=== PATIENT | male | born 1975 | race American Indian/Alaskan Native ===

== ENCOUNTER 2018-04-12 07:14 | Emergency (ER) | payer OTHER ==
--- NOTE | 2018-04-12 08:43 | Emergency Department Report ---
ED Back Pain/Injury HPI - General Chief Complaint: Abdominal Pain Stated Complaint: SIDE/BACK PAIN Time Seen by Provider: 04/12/18 08:38 Source: patient, RN notes reviewed Limitations: No Limitations - History of Present Illness Initial Comments: Patient is a 43-year-old male who is complaining of some bilateral low back pain. Patient states hurts worse with movement. States that he has been a constant discomfort. Patient states pain is 7 out of 10 in severity as aching and throbbing. MD Complaint: back pain Similar Symptoms Previously: No Radiation: none Severity scale (0 -10): 7 Quality: aching Consistency: constant Improves With: none Worsens With: movement, walking Associated Symptoms: other (hematuria). denies: confusion, chest pain, nu mbness, difficulty walking, cough, diaphoresis, incontinence, fever/chills, constipation, headaches, abdominal pain, loss of appetite, nausea/vomiting, seizure, syncope - Related Data Previous Rx's Medication Instructions Recorded Last Taken Type Ibuprofen [Motrin] 800 mg PO Q8HR PRN #20 tablet 04/12/18 Unknown Rx methOCARBAMOL [Robaxin TAB] 500 mg PO Q6H PRN #15 tablet 04/12/18 Unknown Rx traMADol [Ultram] 50 mg PO Q6HR PRN #12 tablet 04/12/18 Unknown Rx Allergies Allergy/AdvReac Type Severity Reaction Status Date / Time No Known Allergies Allergy Unverified 04/12/18 07:20 ED Review of Systems ROS: Stated complaint: SIDE/BACK PAIN Other details as noted in HPI Comment: All other systems reviewed and negative ED Back Pain Physical Exam - Exam General: Vital signs noted. No distress. Alert and acting appropriately. Back/Abdomen: Yes Perilumbar Tenderness, No Abdominal Tenderness, No Perithoracic Tenderness, No Sacroiliac Tenderness, No Flank Tenderness, No Straight Leg Raise Pain Neuro: Yes Normal Sensation, Yes Normal DTR's, Yes Normal Gait, No Motor Weakness ED Medical Decision Making - Lab Data Lab Results 04/12/18 Range/Units 08:47 Urine Color Yellow (Yellow) Urine Turbidity Clear (Clear) Urine pH 5.0 (5.0-7.0) Ur Specific Rescue 1.021 (1.003-1.030) Urine Protein <15 mg/dl (Negative) mg/dL Urine Glucose (UA) Neg (Negative) mg/dL Urine Ketones Neg (Negative) mg/dL Urine Blood Neg (Negative) Urine Nitrite Neg (Negative) Urine Bilirubin Neg (Negative) Urine Urobilinogen < 2.0 (<2.0) mg/dL Ur Leukocyte Esterase Neg (Negative) Urine WBC (Auto) 1.0 (0.0-6.0) /HPF Urine RBC (Auto) 5.0 (0.0-6.0) /HPF Urine Mucus Few /HPF - Medical Decision Making Patient is a 43-year-old black male presenting with some low back pain. Patient was worried about something being wrong with his kidneys. Urinalysis is within normal limits. Per patient's history the patient's symptoms sound more muscular skeletal in nature. Patient be started on this symptomatically fully discharge home. Critical care attestation.: If time is entered above; I have spent that time in minutes in the direct care of this critically ill patient, excluding procedure time. ED Disposition Clinical Impression: Lumbar back pain, Muscle strain Disposition: DC-01 TO HOME OR SELFCARE Is pt being admited?: No Does the pt Need Aspirin: No Condition: Stable Instructions: Muscle Strain (ED) Referrals: EDDIE ALTAMIRANO MD [Staff Physician] - 3-5 Days Time of Disposition: 09:33
[2018-04-12 09:19] LABS: Bilirubin,Urine NEG (Negative); Blood,Urine NEG (Negative); Color,Urine Yellow (Yellow); Mucus,Urine FEW /HPF; Protein,Urine <15 mg/dL mg/dL (Negative); Urobilinogen,Urine < 2.0 mg/dL (<2.0)
== END 2018-04-12 09:39 | disposition home or self-care (01) ==
LOC: ED 07:14
DX: S39.012A Strain of muscle, fascia and tendon of lower back, initial encounter (principal); X58.XXXA Exposure to other specified factors, initial encounter; Y93.89 Activity, other specified; Y92.89 Other specified places as the place of occurrence of the external cause; Y99.8 Other external cause status
CPT/HCPCS: 81001; 99283